=== PATIENT | male | born 1985 | race Caucasian/White ===

== ENCOUNTER 2018-12-07 04:19 | Emergency (ER) | payer MEDICAID, OTHER ==
[~2018-12-07] VITALS: Ht 175.3 cm; Wt 92.5 kg
[2018-12-07 04:35] VITALS: BP 129/85
[2018-12-07] MEDS ORDERED: METHOCARBAMOL 500 MG TAB PO ONE (06:45)
[2018-12-07] MEDS ORDERED: KETOROLAC TROMETH 60MG/2ML VIAL IM ONE (06:45)
== END 2018-12-07 07:19 | disposition home or self-care (01) ==
LOC: ER 04:20
DX: S33.5XXA Sprain of ligaments of lumbar spine, initial encounter (principal); E11.9 Type 2 diabetes mellitus without complications; X58.XXXA Exposure to other specified factors, initial encounter; Y93.89 Activity, other specified; Y92.89 Other specified places as the place of occurrence of the external cause; Y99.8 Other external cause status
CPT/HCPCS: 72100; 96372; 99283; J1885